=== PATIENT | female | born 1995 | race Caucasian/White ===

== ENCOUNTER 2017-12-30 19:53 | Observation (INO) | payer OTHER ==
--- NOTE | 2017-12-30 19:56 | PDOC ---
History of Present Illness - General History Source: Patient Exam Limitations: No Limitations - History of Present Illness Initial Comments: 12/30/17 20:54 The patient is a 22 year old female, with a significant past medical history of diabetes and kidney stones, who presents to the emergency department with, flank pain. She describes her pain as a 6/10, waxing and waning, and radiating to her right side in the front. She reports to have went to urgent care yesterday and was prescribed antibiotics for urinary frequency, hematuria, and a pressure-like sensation. She reports taking Tylenol for her pain. She denies recent fevers, chills, headache or dizziness. She denies recent chest pain or shortness of breath. Allergies: NKA Past surgical history: None reported. Social history: Nonsmoker. Denies EtOH use and recreational drug use. <Rosa Isela Pedraza - Last Filed: 12/30/17 20:53> <Natalya Yanez - Last Filed: 12/31/17 03:03> - General Chief Complaint: Pain, Acute Stated Complaint: RIGHT FLANK PAIN Time Seen by Provider: 12/30/17 19:55 Past History <Rosa Isela Pedraza - Last Filed: 12/30/17 20:53> <Natalya Yanez - Last Filed: 12/31/17 03:03> - Past Medical History Allergies/Adverse Reactions: Allergies Allergy/AdvReac Type Severity Reaction Status Date / Time No Known Allergies Allergy Verified 12/30/17 20:22 Home Medications: Ambulatory Orders Metformin HCl [Glucophage] 1,000 mg PO BID 12/30/17 Review of Systems - Review of Systems Able to Perform ROS?: Yes Comments:: 12/30/17 20:55 GENERAL/CONSTITUTIONAL: No fever or chills. No weakness. HEAD, EYES, EARS, NOSE AND THROAT: No change in vision. No ear pain or discharge. No sore throat. CARDIOVASCULAR: No chest pain or shortness of breath. RESPIRATORY: No cough, wheezing, or hemoptysis. GASTROINTESTINAL: No nausea, vomiting, diarrhea or constipation. GENITOURINARY: +Flank pain. +Urinary frequency. +Hematuria. MUSCULOSKELETAL: No neck or back pain. SKIN: No rash NEUROLOGIC: No headache, vertigo, loss of consciousness, or change in strength/ sensation. ENDOCRINE: No increased thirst. No abnormal weight change. HEMATOLOGIC/LYMPHATIC: No anemia, easy bleeding, or history of blood clots. ALLERGIC/IMMUNOLOGIC: No hives or skin allergy. All Other Systems: Reviewed and Negative <Rosa Isela Pedraza - Last Filed: 12/30/17 20:53> *Physical Exam - Physical Exam Comments: 12/30/17 20:56 GENERAL: Awake, alert, and fully oriented, in no acute distress HEAD: No signs of trauma EYES: PERRLA, EOMI, sclera anicteric, conjunctiva clear ENT: Auricles normal inspection, hearing grossly normal, nares patent, oropharynx clear without exudates. Moist mucosa NECK: Normal ROM, supple, no lymphadenopathy, JVD, or masses LUNGS: Breath sounds equal, clear to auscultation bilaterally. No wheezes, and no crackles HEART: Regular rate and rhythm, normal S1 and S2, no murmurs, rubs or gallops ABDOMEN: +Minimal suprapubic tenderness. No flank pain. Soft, nontender, normoactive bowel sounds. No guarding, no rebound. No masses EXTREMITIES: Normal range of motion, no edema. No clubbing or cyanosis. No cords, erythema, or tenderness NEUROLOGICAL: Cranial nerves II through XII grossly intact. Normal speech, normal gait SKIN: Warm, Dry, normal turgor, no rashes or lesions noted. <Rosa Isela Pedraza - Last Filed: 12/30/17 20:53> Heart Score/ECG Review - Electrocardiogram EKG: Normal - Age Age: </= 45 - Risk Factors Risk Factors Heart Score: No Hx Hypercholesterolemia, No Hx Hypertension, No Hx Diabetes, No Smoking History, No Positive family hx of cardiac disease, No Hx Obesity <Natalya Yanez - Last Filed: 12/31/17 03:03> ED Treatment Course - LABORATORY CBC & Chemistry Diagram: 12/30/17 20:00 12/30/17 20:00 - ADDITIONAL ORDERS Additional order review: Laboratory Results 12/30/17 12/30/17 20:00 20:00 Sodium 136 Potassium 3.7 Chloride 103 Carbon Dioxide 24 Anion Gap 9 BUN 10 Creatinine < 0.8 Creat Clearance w eGFR > 60 Random Glucose 153 H Calcium 9.5 Total Bilirubin 0.9 AST 19 ALT 14 Alkaline Phosphatase 87 Total Protein 8.1 Albumin 4.6 Urine Color Yellow Urine Appearance Cloudy Urine pH 5.5 Ur Specific [place] >= 1.030 H Urine Protein 3+ H Urine Glucose (UA) 1+ H Urine Ketones Trace Urine Blood 3+ H Urine Nitrite Negative Urine Bilirubin 1+ H Urine Urobilinogen 0.2 Ur Leukocyte Esterase Negative Urine RBC >100 Urine WBC 0-3 Ur Epithelial Cells 0-3 Calcium Oxalate Crystal Moderate Urine Mucus 1+ Urine HCG, Qual Negative 12/30/17 20:00 RBC 5.37 H MCV 82.9 MCHC 34.6 RDW 11.5 L MPV 8.0 Neutrophils % 61.6 Lymphocytes % 30.5 Monocytes % 5.3 Eosinophils % 1.3 Basophils % 1.3 <Rosa Isela Pedraza - Last Filed: 12/30/17 20:53> - LABORATORY CBC & Chemistry Diagram: 12/30/17 20:00 12/30/17 20:00 <Natalya Yanez - Last Filed: 12/31/17 03:03> Medical Decision Making - Medical Decision Making 12/30/17 21:09 Pt comes with right flank pain that has been ongoing for a few days and she now has no flank pain, but she has suprapubic fullness and she feels like she has to squeeze when she urinates and she feels abdominal pressure with urination. 12/30/17 22:53 Patient Name: ISABEL SCHWARTZ THIS IS A final PRELIMINARYREPORT FROM [facility] DATE OF SERVICE: 2017-12-30 20:31:47 IMAGES: 45 EXAM: COMPLETE RENAL ULTRASOUND TECHNIQUE: Transabdominal sonography of the kidneys to include the urinary bladder with doppler color flow images REASON FOR EXAM: Right flank pain COMPARISON: None. FINDINGS: KIDNEYS: There is normal corticomedullary differentiation bilaterally. The right kidney measures 11.5 cm and the left kidney measures 11.4 cm. There is moderate right hydronephrosis and proximal hydroureter. Echogenic structures within the calyces of the right kidney possibly related to papillae. No obvious Nephrolithiasis. Solid renal mass: No BLADDER: Not imaged. IMPRESSION: Moderate right hydronephrosis and proximal hydroureter. No shadowing calculi. Echogenic structures within the calyces may represent papillae. Suggest further assessment with unenhanced CT as warranted clinically. 12/31/17 00:39 Patient Name: ISABEL SCHWARTZ THIS IS A PRELIMINARY REPORT FROM [facility] DATE OF SERVICE: 2017-12-30 22:16:39 IMAGES: 531 EXAM: CT abdomen and pelvis without contrast HISTORY: Right-sided pain COMPARISON: None. FINDINGS: Positive for a 4.7 mm obstructing distal right ureteral stone at the right ureterovesicular junction causing moderate right hydronephrosis/hydroureter. No left urinary tract stone or obstruction. Note made of cholelithiasis. No other acute intra-abdominal abnormalities. 12/31/17 03:01 Pt will be admitted to the hospitalist service as she continues to have pain. ANd as the stone is obstructed. <Natalya Yanez - Last Filed: 12/31/17 03:03> *DC/Admit/Observation/Transfer - Attestations Scribe Attestion: 12/30/17 20:58 Documentation prepared by Rosa Isela Pedraza, acting as medical records assistant for Natalya Yanez MD. <Rosa Isela Pedraza - Last Filed: 12/30/17 20:53> - Discharge Dispostion Admit: Yes <Natalya Yanez - Last Filed: 12/31/17 03:03> Diagnosis at time of Disposition: Renal colic, Hydroureter, Hydronephrosis, Hydronephrosis with renal and ureteral calculous obstruction - Discharge Dispostion Condition at time of disposition: Guarded
[2017-12-30] MEDS ORDERED: KETOROLAC TROMETHAMINE 30 MG/1 ML VIAL ONE (20:05)
[2017-12-30 20:06] LABS: PH,URINE 5.5 (4.5-8); URINE APPEARANCE Cloudy; URINE BILIRUBIN 1+ (NEGATIVE); URINE BLOOD 3+ (NEGATIVE); URINE COLOR YELLOW; URINE GLUCOSE (UA) 1+ (NEGATIVE); URINE KETONE Trace (NEGATIVE); URINE LEUK ESTERASE Negative (NEGATIVE); URINE NITRITE Negative (NEGATIVE); URINE PROTEIN 3+ (NEGATIVE); URINE UROBILINOGEN 0.2 (0.2-1.0)
[2017-12-30 20:07] LABS: HCG,QUALITATIVE URINE NEGATIVE
[2017-12-30 20:12] LABS: BASO % 1.3 % (0-2.0); EOS % 1.3 % (0-4.5); HEMATOCRIT 44.5 % (32.4-45.2); HEMOGLOBIN 15.4 GM/dl (10.7-15.3); LYMPH % 30.5 % (8-40); MCH 28.7 pg (25.7-33.7); MCHC 34.6 g/dl (32.0-36.0); MEAN CELL VOLUME 82.9 fl (80-96); MONO % 5.3 % (3.8-10.2); NEUT % 61.6 % (42.8-82.8); PLATELET COUNT 287 K/MM3 (134-434); RBC 5.37 M/mm3 (3.60-5.2); RDW 11.5 % (11.6-15.6); WHITE BLOOD COUNT 13.7 K/mm3 (4.0-10.8)
[2017-12-30] MEDS ORDERED: SODIUM CHLORIDE 0.9% 500 ML INFUS.BAG IV ONE (20:13)
[2017-12-30] MEDS ORDERED: KETOROLAC TROMETHAMINE 30 MG/1 ML VIAL IVPUSH ONE (20:13)
[2017-12-30 20:23] LABS: CALCIUM OXALATE CRYSTALS MODERATE /hpf (NONE SEEN); EPI CELLS 0-3 /HPF; URINE MUCUS 1+; URINE RBC >100 /hpf (0-3); URINE WBC 0-3 (0-5)
[2017-12-30 20:25] LABS: ALBUMIN 4.6 g/dl (3.5-5.0); ALK PHOS 87 U/L (32-92); ANION GAP 9 (8-16); BILIRUBIN,TOTAL 0.9 mg/dl (0.2-1.0); BLOOD UREA NITROGEN 10 mg/dl (7-18); CALCIUM 9.5 mg/dl (8.4-10.2); CHLORIDE 103 mmol/L (98-107); CO2 24 mmol/L (22-28); GLUCOSE,RANDOM 153 mg/dl (74-106); POTASSIUM 3.7 mmol/L (3.5-5.1); SGOT/AST 19 U/L (10-42); SGPT/ALT 14 U/L (10-40); SODIUM 136 mmol/L (136-145); TOT PROT 8.1 g/dl (6.4-8.3)
[2017-12-30 20:33] LABS: CREATININE < 0.8 mg/dl (0.6-1.3)
[2017-12-30] MEDS ORDERED: TAMSULOSIN HCL 0.4 MG CAP.ER.24H (FP) PO ONE (21:07)
[2017-12-30] MEDS ORDERED: TAMSULOSIN HCL 0.4 MG CAP.ER.24H (FP) ONE (21:15)
[2017-12-31 00:48] VITALS: BMI 24.5
[2017-12-31] MEDS: SODIUM CHLORIDE 1,000 ML IV SCH (03:15)
[2017-12-31] MEDS: INSULIN SLIDING SCALE (NOVOLOG) 1 VIAL SQ SCH ×3 (03:15→21:42)
--- NOTE | 2017-12-31 07:23 | HP ---
CHIEF COMPLAINT: flank pain PCP: Dr Perez HISTORY OF PRESENT ILLNESS: Patient is a 22 y/o female with a past medical history of DM and renal calculi. Patient reports right sided flank pain for the past 24 hours that was intermittent. In addition, she reports nausea and decreased appetite for the past 24 hours. Patient reports that symptoms have since subsided since being evaluated in the emergency department. ER course was notable for: (1)ultrasound of kidney, moderate right hydronephrosis, 5mm renal stones (2) wbc 13.7 (3) temp 98.6 Recent Travel: none PAST MEDICAL HISTORY: see hpi PAST SURGICAL HISTORY: see hpi Social History: resides at home Smoking: denies Alcohol:denies Drugs: denies Family History: non contributory to this admission Allergies No Known Allergies Allergy (Verified 12/30/17 20:22) HOME MEDICATIONS: Home Medications Medication Instructions Recorded Metformin HCl [Glucophage] 1,000 mg PO BID 12/30/17 Insulin Degludec [Tresiba 44 unit SQ HS 12/31/17 Flextouch U-100] REVIEW OF SYSTEMS CONSTITUTIONAL: Absent: fever, chills, diaphoresis, generalized weakness, malaise, loss of appetite, weight change HEENT: Absent: rhinorrhea, nasal congestion, throat pain, throat swelling, difficulty swallowing, mouth swelling, ear pain, eye pain, visual changes CARDIOVASCULAR: Absent: chest pain, syncope, palpitations, irregular heart rate, lightheadedness , peripheral edema RESPIRATORY: Absent: cough, shortness of breath, dyspnea with exertion, orthopnea, wheezing, stridor, hemoptysis GASTROINTESTINAL: Absent: abdominal pain, abdominal distension, nausea, vomiting, diarrhea, constipation, melena, hematochezia GENITOURINARY: Present: flank pain Absent: dysuria, frequency, urgency, hesitancy, hematuria, genital pain MUSCULOSKELETAL: Absent: myalgia, arthralgia, joint swelling, back pain, neck pain SKIN: Absent: rash, itching, pallor HEMATOLOGIC/IMMUNOLOGIC: Absent: easy bleeding, easy bruising, lymphadenopathy, frequent infections ENDOCRINE: Absent: unexplained weight gain, unexplained weight loss, heat intolerance, cold intolerance NEUROLOGIC: Absent: headache, focal weakness or paresthesias, dizziness, unsteady gait, seizure, mental status changes, bladder or bowel incontinence PSYCHIATRIC: Absent: anxiety, depression, suicidal or homicidal ideation, hallucinations. PHYSICAL EXAMINATION Vital Signs - 24 hr 12/31/17 12/31/17 12/31/17 00:44 03:20 06:00 Temperature 98.6 F 98 F 98 F Pulse Rate 100 H 87 87 Respiratory 18 16 16 Rate Blood Pressure 105/71 102/70 104/56 O2 Sat by Pulse 98 98 Oximetry (%) GENERAL: Awake, alert, and fully oriented, in no acute distress. HEAD: Normal with no signs of trauma. EYES: Pupils equal, round and reactive to light, extraocular movements intact, sclera anicteric, conjunctiva clear. No lid lag. EARS, NOSE, THROAT: Ears normal, nares patent, oropharynx clear without exudates. Moist mucous membranes. NECK: Normal range of motion, supple without lymphadenopathy, JVD, or masses. LUNGS: Breath sounds equal, clear to auscultation bilaterally. No wheezes, and no crackles. No accessory muscle use. HEART: Regular rate and rhythm, normal S1 and S2 without murmur, rub or gallop. ABDOMEN: Soft, nontender, not distended, normoactive bowel sounds, no guarding, no rebound, no masses. No hepatomegaly or splenomegaly. MUSCULOSKELETAL: Normal range of motion at all joints. No bony deformities or tenderness. No CVA tenderness. UPPER EXTREMITIES: 2+ pulses, warm, well-perfused. No cyanosis. No clubbing. No peripheral edema. LOWER EXTREMITIES: 2+ pulses, warm, well-perfused. No calf tenderness. No peripheral edema. NEUROLOGICAL: Cranial nerves II-XII intact. Normal speech. Normal gait. PSYCHIATRIC: Cooperative. Good eye contact. Appropriate mood and affect. SKIN: Warm, dry, normal turgor, no rashes or lesions noted, normal capillary refill. Laboratory Results - last 24 hr 12/30/17 12/30/17 12/30/17 20:00 20:00 20:00 WBC 13.7 H RBC 5.37 H Hgb 15.4 H Hct 44.5 MCV 82.9 MCH 28.7 MCHC 34.6 RDW 11.5 L Plt Count 287 MPV 8.0 Neutrophils % 61.6 Lymphocytes % 30.5 Monocytes % 5.3 Eosinophils % 1.3 Basophils % 1.3 Sodium 136 Potassium 3.7 Chloride 103 Carbon Dioxide 24 Anion Gap 9 BUN 10 Creatinine < 0.8 Creat Clearance w eGFR > 60 POC Glucometer Random Glucose 153 H Calcium 9.5 Total Bilirubin 0.9 AST 19 ALT 14 Alkaline Phosphatase 87 Total Protein 8.1 Albumin 4.6 Urine Color Yellow Urine Appearance Cloudy Urine pH 5.5 Ur Specific [place] >= 1.030 H Urine Protein 3+ H Urine Glucose (UA) 1+ H Urine Ketones Trace Urine Blood 3+ H Urine Nitrite Negative Urine Bilirubin 1+ H Urine Urobilinogen 0.2 Ur Leukocyte Esterase Negative Urine RBC >100 Urine WBC 0-3 Ur Epithelial Cells 0-3 Calcium Oxalate Crystal Moderate Urine Mucus 1+ Urine HCG, Qual Negative 12/31/17 12/31/17 03:15 06:40 WBC RBC Hgb Hct MCV MCH MCHC RDW Plt Count MPV Neutrophils % Lymphocytes % Monocytes % Eosinophils % Basophils % Sodium Potassium Chloride Carbon Dioxide Anion Gap BUN Creatinine Creat Clearance w eGFR POC Glucometer 119 122 Random Glucose Calcium Total Bilirubin AST ALT Alkaline Phosphatase Total Protein Albumin Urine Color Urine Appearance Urine pH Ur Specific [place] Urine Protein Urine Glucose (UA) Urine Ketones Urine Blood Urine Nitrite Urine Bilirubin Urine Urobilinogen Ur Leukocyte Esterase Urine RBC Urine WBC Ur Epithelial Cells Calcium Oxalate Crystal Urine Mucus Urine HCG, Qual ASSESSMENT/PLAN: f/e/n - diabdetic diet - replete lytes prn ppx - oob - scd - pepcid dispo: pt requires observaton admisisn Problem List - Problem (1) Hydronephrosis with renal and ureteral calculus obstruction Assessment/Plan: - ultrasound of kidney reviewed, start flomax - pt is afebrile, wbc downtrending, pending urine culture, start empiric rocephin - strain all urine - case discussed with urology, Dr Hooper, appreciate urology inpt Code(s): N13.2 - HYDRONEPHROSIS WITH RENAL AND URETERAL CALCULOUS OBSTRUCTION (2) Diabetes Assessment/Plan: - continue fingersticks achs with regular insulin sliding scale - continue tresiba home dose Code(s): E11.9 - TYPE 2 DIABETES MELLITUS WITHOUT COMPLICATIONS Visit type - Emergency Visit Emergency Visit: Yes ED Registration Date: 12/31/17 Care time: The patient presented to the Emergency Department on the above date and was hospitalized for further evaluation of their emergent condition. - New Patient This patient is new to me today: Yes Date on this admission: 01/01/18 - Critical Care Critical Care patient: No Hospitalist Screening - Colonoscopy Questionnaire Colonoscopy Questionnaire: Colonoscopy Questionnaire - Patient: 50 - 75 years old and never had a screening colonoscopy: No History of colon or rectal polyps, or CA: No History of IBD, Crohn's disease or UC: No History of abdominal radiation therapy as a child: No - Relative: 1 with colon or rectal CA, or polyps at age 60 or younger: No Colon or rectal CA diagnosed at age 45 or younger: No Multiple relatives with colon or rectal CA: No - Outcome: Screening Result: Negative Screen
--- NOTE | 2017-12-31 08:20 | EKG ---
Test Reason : Blood Pressure : / mmHG Vent. Rate : 102 BPM Atrial Rate : 102 BPM P-R Int : 152 ms QRS Dur : 082 ms QT Int : 338 ms P-R-T Axes : 048 020 030 degrees QTc Int : 440 ms SINUS TACHYCARDIA OTHERWISE NORMAL ECG WHEN COMPARED WITH ECG OF 16-MAR-2011 14:16, NO SIGNIFICANT CHANGE WAS FOUND Confirmed by JOEL TOM MD ([id number]) on 12/31/2017 8:19:30 AM Referred By: MD MIDDLETON Confirmed By:JOEL TOM MD
[2017-12-31 08:24] LABS: HEMATOCRIT 34.6 % (32.4-45.2); HEMOGLOBIN 11.9 GM/dl (10.7-15.3); MCH 29.1 pg (25.7-33.7); MCHC 34.5 g/dl (32.0-36.0); MEAN CELL VOLUME 84.2 fl (80-96); PLATELET COUNT 233 K/MM3 (134-434); RBC 4.11 M/mm3 (3.60-5.2); RDW 11.8 % (11.6-15.6); WHITE BLOOD COUNT 10.5 K/mm3 (4.0-10.8)
[2017-12-31 08:45] LABS: ANION GAP 5 (8-16); BLOOD UREA NITROGEN 10 mg/dl (7-18); CALCIUM 8.1 mg/dl (8.4-10.2); CHLORIDE 108 mmol/L (98-107); CO2 22 mmol/L (22-28); GLUCOSE,RANDOM 110 mg/dl (74-106); POTASSIUM 3.8 mmol/L (3.5-5.1); SODIUM 135 mmol/L (136-145)
[2017-12-31 08:49] LABS: ACTIVATED PTT 32.6 SECONDS (24.0-38.9)
[2017-12-31 08:57] LABS: INR 1.05 (0.82-1.09); PROTHROMBIN TIME (PATIENT) 11.7 SEC (10.2-13.0)
[2017-12-31] MEDS ORDERED: TAMSULOSIN HCL 0.4 MG CAP.ER.24H (FP) PO ONE (09:00)
[2017-12-31] MEDS ORDERED: CEFTRIAXONE 1 G/50 ML PREMIX 50 ML IVPB ONE (09:15)
[2017-12-31] MEDS ORDERED: CEFTRIAXONE 1 GM/50 ML BAG IVPB ONE (09:15)
[2017-12-31 09:48] LABS: CREATININE < 0.8 mg/dl (0.6-1.3)
[2017-12-31] MEDS: CEFTRIAXONE 1 G/50 ML PREMIX 50 ML IVPB SCH (10:41)
--- NOTE | 2017-12-31 17:22 | CON.GU ---
Consult Consult Specialty:: Referred by:: Rajendra Reason for Consultation:: right ureteral stone - History of Present Illness Chief Complaint: right ureteral stone History of Present Illness: 22 year old female with history of nephrolithiasis at age 11 with right sided flank pain. CT scan reveals a 4-5mm stone at the right UVJ. No fevers or any indication of active UTI or sepsis. Since admission with hydration she is feeling better and the pain has migrated from her flank to her groin. - History Source History Provided By: Patient, Medical Record Limitations to Obtaining History: No Limitations - Past Medical History Renal/: Yes: Renal Calculi (passed by itself at age 11) - Alcohol/Substance Use Hx Alcohol Use: No - Smoking History Smoking history: Never smoked Have you smoked in the past 12 months: No Home Medications - Allergies Allergies/Adverse Reactions: Allergies Allergy/AdvReac Type Severity Reaction Status Date / Time No Known Allergies Allergy Verified 12/30/17 20:22 - Home Medications Home Medications: Ambulatory Orders Metformin HCl [Glucophage] 1,000 mg PO BID 12/30/17 Insulin Degludec [Tresiba Flextouch U-100] 44 unit SQ HS 12/31/17 Review of Systems - Review of Systems Constitutional: denies: Chills, Fever Genitourinary: reports: Flank Pain, Frequency, Pain Physical Exam- Vital Signs: Vital Signs Temperature 98.7 F 12/31/17 14:16 Pulse Rate 88 12/31/17 14:16 Respiratory Rate 18 12/31/17 14:16 Blood Pressure 104/71 12/31/17 14:16 O2 Sat by Pulse Oximetry (%) 100 12/31/17 14:16 Constitutional: Yes: Well Nourished, No Distress, Calm Gastrointestinal: Yes: Soft Renal/: No: Bladder Distention, CVA Tenderness - Left, CVA Tenderness - Right , Coon Present, Hematuria Labs: CBC, BMP 12/31/17 07:50 12/31/17 07:50 Imaging - Results Cat Scan: Report Reviewed Problem List - Problems (1) Hydronephrosis with renal and ureteral calculus obstruction Assessment/Plan: 5mm right UVJ stone. no sepsis or infection. Her pain is improved. High likelihood of passage with medical expulsive therapy. Continue flomax and hydration and straining her urine. will follow. Code(s): N13.2 - HYDRONEPHROSIS WITH RENAL AND URETERAL CALCULOUS OBSTRUCTION (2) Calculus of distal right ureter Code(s): N20.1 - CALCULUS OF URETER
[2017-12-31] MEDS ORDERED: INSULIN DEGLUDEC SQ SCH (22:00)
[2017-12-31 22:16] VITALS: TEMP 98.5
[2018-01-01 06:10] VITALS: BP 110/67; PULSE 90
[2018-01-01] MEDS: INSULIN SLIDING SCALE (NOVOLOG) 1 VIAL SQ SCH (06:39)
[2018-01-01] MEDS: SODIUM CHLORIDE 1,000 ML IV SCH (06:41)
[2018-01-01] MEDS ORDERED: TAMSULOSIN HCL 0.4 MG CAP.ER.24H (FP) PO SCH (08:30)
[2018-01-01] MEDS: CEFTRIAXONE 1 G/50 ML PREMIX 50 ML IVPB SCH (10:01)
--- NOTE | 2018-01-01 10:36 | DS ---
Physical Exam: SUBJECTIVE: Patient seen and examined, sitting up in bed, denies any abdominal pain or flank pain, tolerating regular diet OBJECTIVE:Patient is a 22 y/o female with a past medical history of DM and renal calculi. Patient reports right sided flank pain for the past 24 hours that was intermittent. In addition, she reports nausea and decreased appetite for the past 24 hours. Patient reports that symptoms have since subsided since being evaluated in the emergency department. ER course was notable for: (1)ultrasound of kidney, moderate right hydronephrosis, 5mm renal stones (2) wbc 13.7 (3) temp 98.6 Vital Signs Period Temp Pulse Resp BP Sys/Blank Pulse Ox Last 24 Hr 98.5 F-98.7 F 87-90 18-19 104-110/67-76 97-100 PHYSICAL EXAM GENERAL: The patient is awake, alert, and fully oriented, in no acute distress. HEAD: Normal with no signs of trauma. EYES: PERRL, extraocular movements intact, sclera anicteric, conjunctiva clear. ENT: Ears normal, nares patent, oropharynx clear without exudates, moist mucous membranes. NECK: Trachea midline, full range of motion, supple. LUNGS: Breath sounds equal, clear to auscultation bilaterally, no wheezes, no crackles, no accessory muscle use. HEART: Regular rate and rhythm, S1, S2 without murmur, rub or gallop. ABDOMEN: Soft, nontender, nondistended, normoactive bowel sounds, no guarding, no rebound, no hepatosplenomegaly, no masses. EXTREMITIES: 2+ pulses, warm, well-perfused, no edema. NEUROLOGICAL: Cranial nerves II through XII grossly intact. Normal speech, gait not observed. PSYCH: Normal mood, normal affect. SKIN: Warm, dry, normal turgor, no rashes or lesions noted. LABS Laboratory Results - last 24 hr 12/31/17 12/31/17 12/31/17 07:50 07:56 12:34 POC Glucometer 121 Blood Type O POSITIVE O POSITIVE Antibody Screen Negative 01/01/18 06:21 POC Glucometer 82 Blood Type Antibody Screen CBC WBC 10.5 K/mm3 (4.0-10.8) 12/31/17 07:50 RBC 4.11 M/mm3 (3.60-5.2) D 12/31/17 07:50 Hgb 11.9 GM/dl (10.7-15.3) D 12/31/17 07:50 Hct 34.6 % (32.4-45.2) D 12/31/17 07:50 MCV 84.2 fl (80-96) 12/31/17 07:50 MCH 29.1 pg (25.7-33.7) 12/31/17 07:50 MCHC 34.5 g/dl (32.0-36.0) 12/31/17 07:50 RDW 11.8 % (11.6-15.6) 12/31/17 07:50 Plt Count 233 K/MM3 (134-434) 12/31/17 07:50 MPV 8.0 fl (7.5-11.1) 12/31/17 07:50 Neutrophils % 61.6 % (42.8-82.8) 12/30/17 20:00 Lymphocytes % 30.5 % (8-40) 12/30/17 20:00 Monocytes % 5.3 % (3.8-10.2) 12/30/17 20:00 Eosinophils % 1.3 % (0-4.5) 12/30/17 20:00 Basophils % 1.3 % (0-2.0) 12/30/17 20:00 CMP Sodium 135 mmol/L (136-145) L 12/31/17 07:50 Potassium 3.8 mmol/L (3.5-5.1) 12/31/17 07:50 Chloride 108 mmol/L (98-107) H 12/31/17 07:50 Carbon Dioxide 22 mmol/L (22-28) 12/31/17 07:50 Anion Gap 5 (8-16) L 12/31/17 07:50 BUN 10 mg/dl (7-18) 12/31/17 07:50 Creatinine < 0.8 mg/dl (0.6-1.3) 12/31/17 07:50 Creat Clearance w eGFR > 60 (>60) 12/30/17 20:00 POC Glucometer 82 UNITS (80-120) 01/01/18 06:21 Random Glucose 110 mg/dl (74-106) H D 12/31/17 07:50 Calcium 8.1 mg/dl (8.4-10.2) L 12/31/17 07:50 Total Bilirubin 0.9 mg/dl (0.2-1.0) 12/30/17 20:00 AST 19 U/L (10-42) 12/30/17 20:00 ALT 14 U/L (10-40) 12/30/17 20:00 Alkaline Phosphatase 87 U/L (32-92) 12/30/17 20:00 Total Protein 8.1 g/dl (6.4-8.3) 12/30/17 20:00 Albumin 4.6 g/dl (3.5-5.0) 12/30/17 20:00 IMAGING Ultrasound of kidney: mild to moderte right hydronephrosis, 5mm non obstructing stone ct of pelvis: 5 x 4mm obstructing stone @ right UVJ, moderate right hydronephrosis HOSPITAL COURSE: Patient was admitted from the emergency department for hydronephrosis with obstructing right stone at the uvj. patient remained afebrile noted, no leukoxytosis is noted. Patient was treated with empiric rocephin and started on flomax. patient was evaluated by the urologist, Dr Hooper. Patient remained pain free since admission and tolerated meal. patient has a past medical history of DM, fingersticks achs with regular insulin sliding scale. Tresiba home dose continued. PLAN - continue flomax and strain all urine - follow up with urologist, Dr Hooper, on 01/04/18 - return precautions reviewed, ie fever, abdominal pain, nausea, vomiting. Date of Admission:12/31/17 Date of Discharge: 01/01/18 Minutes to complete discharge: 45 Discharge Summary Reason For Visit: RENAL COLIC/HYDRONEPHROSIS/HYDROURE Current Active Problems Calculus of distal right ureter (Acute) Diabetes (Acute) Hydronephrosis (Acute) Hydronephrosis with renal and ureteral calculous obstruction (Acute) Hydronephrosis with renal and ureteral calculus obstruction (Acute) Hydroureter (Acute) Renal colic (Acute) Condition: Guarded - Instructions - Home Medications Comprehensive Discharge Medication List: Ambulatory Orders Metformin HCl [Glucophage] 1,000 mg PO BID 12/30/17 Insulin Degludec [Tresiba Flextouch U-100] 44 unit SQ HS 12/31/17 Problem List - Problems (1) Hydronephrosis with renal and ureteral calculus obstruction Code(s): N13.2 - HYDRONEPHROSIS WITH RENAL AND URETERAL CALCULOUS OBSTRUCTION (2) Diabetes Code(s): E11.9 - TYPE 2 DIABETES MELLITUS WITHOUT COMPLICATIONS This patient is new to me today: No Emergency Visit: Yes ED Registration Date: 12/31/17 Care time: The patient presented to the Emergency Department on the above date and was hospitalized for further evaluation of their emergent condition. Critical Care patient: No - Discharge Referral Referred to [facility] Med [facility] No
== END 2018-01-01 12:50 | disposition home or self-care (01) ==
LOC: FER 19:53 → INTOOBSV 12-31 01:51 → FM/S 12-31 01:51
PROVIDERS: ADMIT Internal Medicine; ATTEND Nurse Practitioner Family
PROC: 3E0333Z Introduction of Anti-inflammatory into Peripheral Vein, Percutaneous Approach (ICD-10-PCS; principal; 2017-12-31)
DX: N13.2 Hydronephrosis with renal and ureteral calculous obstruction (principal); Z87.442 Personal history of urinary calculi; N13.4 Hydroureter; E11.9 Type 2 diabetes mellitus without complications; Z79.4 Long term (current) use of insulin; Z79.84 Long term (current) use of oral hypoglycemic drugs
CPT/HCPCS: 36415; 71046-TC-FY; 74176; 76775-TC; 80048; 80053; 81003; 81015; 82962; 84703; 85025; 85027; 85610; 85730; 86850; 86900; 86901; 87086; 93005; 96374; 99281-25; G0378

== ENCOUNTER 2020-12-25 10:05 | Emergency (ER) | payer OTHER ==
[2020-12-25] MEDS ORDERED: DIPHTH,PERTUSS(ACELL),TET 0.5 ML DISP.SYRIN IM ONE ×2 (10:15→10:31)
[2020-12-25] MEDS ORDERED: AMOX TR/POT CLAV 875MG/125MG TABLETS (FP) PO ONE (10:15)
[2020-12-25 10:20] VITALS: BP 146/94; PULSE 110; TEMP 99.2; BMI 24.3
[2020-12-25] MEDS ORDERED: AMOX TR/POT CLAV 875MG/125MG TABLETS (FP) ONE (10:31)
== END 2020-12-25 10:44 | disposition home or self-care (01) ==
LOC: FER 10:05
PROC: 3E0234Z Introduction of Serum, Toxoid and Vaccine into Muscle, Percutaneous Approach (ICD-10-PCS; principal; 2020-12-25)
DX: S61.052A Open bite of left thumb without damage to nail, initial encounter (principal); S61.256A Open bite of right little finger without damage to nail, initial encounter
CPT/HCPCS: 90715; 99284-25

== ENCOUNTER 2023-04-24 10:44 | Emergency (ER) | payer OTHER ==
[2023-04-24 10:53] VITALS: BP 117/82; PULSE 89; RESP 18; TEMP 98.1; BMI 24.3
[2023-04-24 11:12] LABS: HCG,QUALITATIVE URINE NEGATIVE
[2023-04-24 11:33] LABS: EPITHELIAL CELLS FEW /hpf
[2023-04-24 11:34] LABS: URINE MUCUS 1+
== END 2023-04-24 12:35 | disposition home or self-care (01) ==
LOC: FER 10:44
DX: N23 Unspecified renal colic (principal); R11.0 Nausea
CPT/HCPCS: 74176-TC; 81003; 81015; 84703; 87086; 99284-25

== ENCOUNTER 2023-11-26 13:00 | Inpatient (IN) | payer OTHER ==
[2023-11-26 15:58] LABS: HEMATOCRIT 41.3 % (32.4-45.2); HEMOGLOBIN 13.9 G/dL (10.7-15.3); MCH 28.7 pg (25.7-33.7); MCHC 33.7 g/dl (32.0-36.0); MEAN CELL VOLUME 85.3 fl (80-96); MEAN PLT VOLUME 8.6 fl (7.5-11.1); PLATELET COUNT 183.6 10^3/uL (134-434); RBC 4.84 10^6/uL (3.60-5.2); RDW 13.4 % (11.6-15.6); WHITE BLOOD COUNT 9.8 10^3/uL (4.0-10.8)
[2023-11-26 16:15] LABS: PLATELET ESTIMATE ADEQUATE
[2023-11-26 16:19] LABS: BILIRUBIN,TOTAL 1.4 mg/dl (0.2-1); CALCIUM 9.3 mg/dl (8.5-10.1); CREATININE 0.7 mg/dl (0.6-1.3); POTASSIUM 3.9 mmol/L (3.5-5.1)
[2023-11-26 16:25] LABS: INR 1.23 (0.83-1.09); PROTHROMBIN TIME (PATIENT) 14.2 SEC (9.7-13.0)
[2023-11-26] MEDS ORDERED: FLUCONAZOLE 150 MG TABLET PO ONE ×2 (16:57→17:04)
[2023-11-26] MEDS ORDERED: cefTRIAXone SODIUM 1 GM VIAL ONE (17:04)
[2023-11-26 17:14] LABS: ACTIVATED PTT 33.8 SECONDS (25.2-36.5)
[2023-11-26] MEDS ORDERED: ACETAMINOPHEN 1000 MG/100 ML BAG IVPB ONE (18:41)
[2023-11-26] MEDS ORDERED: SODIUM CHLORIDE 0.9% 500 ML INFUS.BAG IV ONE (18:58)
[2023-11-26] MEDS ORDERED: ACETAMINOPHEN INJECTION 100 ML IVPB ONE (18:58)
[2023-11-26] MEDS ORDERED: DOCUSATE SODIUM 100 MG CAPSULE (FP) PO PRN (20:05)
[2023-11-26] MEDS ORDERED: SODIUM CHLORIDE 1,000 ML IV SCH (20:15)
[2023-11-26] MEDS: INSULIN ASPART SLIDING SCALE (NOVOLOG) 1 VIAL SQ SCH (22:26)
[2023-11-27] MEDS ORDERED: ACETAMINOPHEN 1000 MG/100 ML BAG IVPB PRN ×2 (00:30→06:50)
[2023-11-27] MEDS ORDERED: CLOTRIMAZOLE 1% CREAM TP PRN (05:48)
[2023-11-27] MEDS ORDERED: BUPIVACAINE HCL/PF 2.5 MG/ML - 30 ML VIAL IJ ONE (07:26)
[2023-11-27] MEDS ORDERED: MIDAZOLAM HCL 2 MG/2 ML SINGLE DOSE VIAL ONE (09:05)
[2023-11-27] MEDS ORDERED: ACETAMINOPHEN INJECTION 100 ML IVPB ONE (09:05)
[2023-11-27] MEDS ORDERED: FENTANYL CITRATE/PF 50 MCG/ML VIAL ONE ×2 (09:05→11:40)
[2023-11-27 09:36] LABS: CALCIUM 8.1 mg/dl (8.5-10.1); CREATININE 0.5 mg/dl (0.6-1.3); MAGNESIUM 1.6 mg/dL (1.8-2.4); PHOSPHOROUS 2.1 (2.5-4.9); POTASSIUM 3.9 mmol/L (3.5-5.1)
[2023-11-27] MEDS ORDERED: ROCURONIUM BROMIDE 50 MG/5 ML SYRINGE ONE (09:36)
[2023-11-27] MEDS ORDERED: HYDROmorphone HCL/PF 1 MG/ML VIAL ONE (09:37)
[2023-11-27] MEDS ORDERED: PROPOFOL 20 ML ONE ×3 (09:38→11:03)
[2023-11-27] MEDS ORDERED: SUCCINYLCHOLINE CHLORIDE 200 MG/10 ML SYRINGE ONE (09:39)
[2023-11-27] MEDS ORDERED: METOCLOPRAMIDE HCL INJECTION 10 MG/2 ML VIAL ONE (09:51)
[2023-11-27] MEDS ORDERED: DEXAMETHASONE SOD PHOSPHATE 4 MG/1 ML VIAL ONE (09:51)
[2023-11-27] MEDS ORDERED: ONDANSETRON 4 MG/2 ML VIAL ONE (09:51)
[2023-11-27] MEDS ORDERED: CEFTRIAXONE 1 GM in DEXTROSE 5%-WATER - 50 ML IVPB SCH (10:00)
[2023-11-27] MEDS: INSULIN ASPART SLIDING SCALE (NOVOLOG) 1 VIAL SQ SCH ×4 (10:17→21:11)
[2023-11-27 10:30] LABS: BASO % 0.3 % (0-2.0); HEMOGLOBIN 11.7 GM/dL (10.7-15.3); MCH 28.1 pg (25.7-33.7); MCHC 33.3 g/dl (32.0-36.0); MEAN CELL VOLUME 84.3 fl (80-96); MEAN PLT VOLUME 8.6 fl (7.5-11.1); MONO % 9.5 % (3.8-10.2); NEUT % 76.2 % (42.8-82.8); PLATELET COUNT 187 10^3/uL (134-434); RBC 4.16 M/mm3 (3.60-5.2); RDW 12.1 % (11.6-15.6)
[2023-11-27] MEDS ORDERED: MAGNESIUM SULF 50% (8.12 MEQ/2 ML-1 GM VIAL) IVPB ONE (10:49)
[2023-11-27] MEDS ORDERED: MAGNESIUM SULFATE IN WATER 2 GM/50 ML IVPB IVPB ONE ×2 (11:00→13:00)
[2023-11-27] MEDS ORDERED: NEOSTIGMINE METHYLSULFATE 0.5 MG/1 ML - 10 ML MDV ONE (11:16)
[2023-11-27] MEDS ORDERED: BUPIVACAINE HCL/PF 0.25% (2.5MG/ML) 10 ML VIAL IJ ONE (11:17)
[2023-11-27] MEDS ORDERED: ONDANSETRON 4 MG/2 ML VIAL IVPUSH PRN ×2 (11:31→12:18)
[2023-11-27] MEDS ORDERED: LACTATED RINGERS SOLUTION 1,000 ML IV SCH (11:45)
[2023-11-27] MEDS ORDERED: SODIUM PHOSPHATE - 15 MM in SODIUM CHLORIDE 250 ML IVPB ONE ×2 (12:00→14:00)
[2023-11-27] MEDS ORDERED: SODIUM CHLORIDE 1,000 ML IV SCH (12:18)
[2023-11-27] MEDS ORDERED: oxyCODONE HCL 5 MG TABLET PO PRN ×2 (12:18)
[2023-11-27] MEDS: DOCUSATE SODIUM 100 MG CAPSULE (FP) PO SCH ×2 (13:12→21:11)
[2023-11-27] MEDS: metFORMIN HCL 500 MG TABLET (FP) PO SCH (17:02)
[2023-11-27] MEDS: ACETAMINOPHEN 1000 MG/100 ML BAG IVPB SCH (17:05)
[2023-11-27] MEDS: PIPERACILLIN/TAZOB 3.375 GM 3.375 GM in DEXTROSE 5%-WATER - 50 ML IVPB SCH (17:06)
[2023-11-27] MEDS: POLYETHYLENE GLYCOL (HEALTHYLAX) 3350 17 GM PACKET PO SCH (21:11)
[2023-11-28] MEDS ORDERED: ACETAMINOPHEN 325 MG TABLET (FP) PO PRN ×2 (00:30)
[2023-11-28] MEDS: ACETAMINOPHEN 1000 MG/100 ML BAG IVPB SCH ×2 (01:14→09:23)
[2023-11-28] MEDS: PIPERACILLIN/TAZOB 3.375 GM 3.375 GM in DEXTROSE 5%-WATER - 50 ML IVPB SCH ×2 (01:34→09:36)
[2023-11-28 02:36] VITALS: RESP 18
[2023-11-28] MEDS: DOCUSATE SODIUM 100 MG CAPSULE (FP) PO SCH (06:41)
[2023-11-28] MEDS: metFORMIN HCL 500 MG TABLET (FP) PO SCH (06:41)
[2023-11-28] MEDS: INSULIN ASPART SLIDING SCALE (NOVOLOG) 1 VIAL SQ SCH ×2 (06:41→11:33)
[2023-11-28 08:52] LABS: ALBUMIN 3.3 g/dl (3.4-5.0); BILIRUBIN,TOTAL 0.6 mg/dl (0.2-1); CALCIUM 8.1 mg/dl (8.5-10.1); CREATININE 0.6 mg/dl (0.6-1.3); MAGNESIUM 2.1 mg/dL (1.8-2.4); POTASSIUM 4.1 mmol/L (3.5-5.1); TOT PROT 5.6 g/dl (6.4-8.2)
[2023-11-28 08:53] LABS: BASO % 0.2 % (0-2.0); EOS % 0.1 % (0-4.5); HEMATOCRIT 34.2 % (32.4-45.2); HEMOGLOBIN 11.1 GM/dL (10.7-15.3); LYMPH % 30.2 % (8-40); MCH 27.6 pg (25.7-33.7); MCHC 32.4 g/dl (32.0-36.0); MEAN PLT VOLUME 8.5 fl (7.5-11.1); MONO % 8.5 % (3.8-10.2); PLATELET COUNT 225 10^3/uL (134-434); RBC 4.02 M/mm3 (3.60-5.2); RDW 12.3 % (11.6-15.6); WHITE BLOOD COUNT 6.5 K/mm3 (4.0-10.0)
[2023-11-28] MEDS: POLYETHYLENE GLYCOL (HEALTHYLAX) 3350 17 GM PACKET PO SCH (09:23)
[2023-11-28 12:21] VITALS: BP 102/65; PULSE 73; TEMP 97.3
[2023-11-28] MEDS ORDERED: PIPERACILLIN/TAZOB 3.375 GM 3.375 GM in DEXTROSE 5%-WATER - 50 ML IVPB SCH (18:00)
[2023-11-29] MEDS ORDERED: ACETAMINOPHEN 500 MG TABLET (FP) PO PRN (01:00)
== END 2023-11-28 14:43 | disposition home or self-care (01) | DRG 263 ==
LOC: FER 13:00 → FM/S 17:30 → UNDOADMIN 17:30
PROVIDERS: ADMIT Internal Medicine; ATTEND Internal Medicine
PROC: 0FT44ZZ Resection of Gallbladder, Percutaneous Endoscopic Approach (ICD-10-PCS; principal; 2023-11-27 09:59)
DX: K80.00 Calculus of gallbladder with acute cholecystitis without obstruction (principal); R10.11 Right upper quadrant pain; R50.9 Fever, unspecified; R00.0 Tachycardia, unspecified; E11.65 Type 2 diabetes mellitus with hyperglycemia; N39.0 Urinary tract infection, site not specified
CPT/HCPCS: 36415; 74176-TC; 76705-TC; 80048; 80053; 81003; 81015; 82962; 83735; 84100; 84703; 85025; 85027; 85610; 85730; 86850; 86900; 86901; 87086; 87491; 87591; 94760; 99285-25